=== PATIENT | male | born 1985 | race Caucasian/White ===

== ENCOUNTER → 2017-02-15 | Outpatient (CLI) | payer OTHER ==
--- NOTE | 2017-02-15 16:20 | RADIOLOGY REPORT (SQ) ---
EXAM DESCRIPTION: NOT FOR OR FLUORO TO 1 HR COMPLETED DATE/TIME: 02/15/2017 4:04 pm REASON FOR STUDY: ENCOUNTER FOR ADJUSTMENT AND MANAGEMENT Z45.2 ENCOUNTER FOR ADJUSTMENT AND MANAGE MENT OF VAD COMPARISON: 12/29/2015 FLUOROSCOPY TIME: 20 seconds 4 series of digital angiographic images images saved to PACS. LIMITATIONS: None. PROCEDURE: Patient's right-sided permanent central line was accessed under sterile conditions. Hand injection of 10 mL of Isovue was performed. Injection into the catheter required a moderate to large amount of pressure. There is a kink in the catheter tubing in the right supraclavicular region. The distal tip of the ca theter tubing has flipped from the superior vena cava into the left brachiocephalic vein. No evidence of fibrin sheath. Contrast flows from the catheter tip into the brachiocephalic vein and superior vena cava without obstruction. IMPRESSION: Catheter integrity is intact. However, there is a tight kinking of the catheter in the right supraclavicular region. The catheter tip has flipped from the superior vena cava into the left brachiocephalic vein. COMMENT: Quality ID 145: Final reports for procedures using fluoroscopy that document radiation exp osure indices, or exposure time and number of fluorographic images (if radiation exposure indices are not available) TECHNICAL DOCUMENTATION: JOB ID: [id number] [employer]- All Rights Reserved
== END ==
LOC: RAD 15:12
PROVIDERS: ATTEND Internal Medicine
DX: Z45.2 Encounter for adjustment and management of vascular access device (principal)
CPT/HCPCS: 76000

== ENCOUNTER → 2017-02-17 | Outpatient (CLI) | payer OTHER ==
--- NOTE | 2017-02-18 11:12 | RADIOLOGY REPORT (SQ) ---
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 RADIONUCLIDE AND DOSE: 13.7 mCi F18 FDG The route of agent administration: Intravenous FASTING BLOOD SUGAR: 95 mg/dl CONTRAST TYPE AND DOSE: No CT contrast given. TECHNIQUE: Blood glucose level was verified. Above dose of FDG was injected intravenously. 2-D seg mented attenuation correction images were obtained from the base of the skull to the midthighs. Nonc ontrast CT images were obtained for attenuation correction and fusion with emission images. CT image s were performed without oral or intravenous contrast and are not sensitive for parenchymal lesions. A series of overlapping emission PET images were obtained. Images reviewed and manipulated at [facility] [employer] work station by the radiologist. Images stored on PACS. LIMITATIONS: None. FINDINGS: HEAD AND NECK: No areas of abnormal metabolic activity in the soft tissues of the head and neck. CHEST: No areas of abnormal metabolic activity in the chest. ABDOMEN AND PELVIS: No areas of abnormal metabolic activity in the abdomen or pelvis. Expected physi ologic activity is present in the genitourinary system and bowel. There is incidental finding of mil d gastric fundal mucosal activity just above baseline with SUV 2.7. This is nonspecific. PROXIMAL LOWER EXTREMITIES: No areas of abnormal metabolic activity in the soft tissues of the lower extremities. BONES: No abnormal metabolic activity in the visualized skeleton. ADDITIONAL CT FINDINGS: Right-sided permanent central line tip superior vena cava. OTHER: Liver activity 2.2 SUV, blood pool activity 1.2 SUV. IMPRESSION: No hypermetabolic adenopathy worrisome for recurrent lymphoma. TECHNICAL DOCUMENTATION: JOB ID: [id number]- All Rights Reserved
== END ==
LOC: RAD 19:25
PROVIDERS: ATTEND Internal Medicine
DX: C85.90 Non-Hodgkin lymphoma, unspecified, unspecified site (principal)
CPT/HCPCS: 78815; A9552

== ENCOUNTER → 2018-11-04 | Outpatient (CLI) | payer OTHER ==
--- NOTE | 2018-11-04 10:48 | RADIOLOGY REPORT (SQ) ---
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 The patient is less than 50 years old. TECHNIQUE: CT scan of the chest performed using helical scanning technique with dynamic intravenous contrast injection. Images reviewed with lung, soft tissue and bone windows. Reconstructed coronal a nd sagittal MPR images reviewed. All images stored on PACS. CT scan of the abdomen and pelvis performed with intravenous and with oral contrastusing helical scan pako technique with dynamic intravenous contrast injection. Images reviewed with lung, soft tissue a nd bone windows. Reconstructed coronal and sagittal MPR images reviewed. Delayed images for evaluat ion of the urinary system also acquired and evaluated. All images stored on PACS. All CT scanners at this facility use dose modulation, iterative reconstruction, and/or weight based d osing when appropriate to reduce radiation dose to as low as reasonably achievable (ALARA). [facility]: Dose Right [facility]: CareDose [facility]: Dose Right [facility]: Teradose 4D [facility]: [employer] CT scan of the chest performed using helical scanning technique with dynamic intravenous contrast inj ection. Images reviewed with lung, soft tissue and bone windows. Reconstructed coronal and sagittal MPR and MIP images reviewed. All images stored on PACS. RADIATION DOSE: 63 mGy . LIMITATIONS: None. FINDINGS: CHEST: LUNGS AND PLEURA: No opacities, nodules, masses. No pneumothorax. No effusions. HILAR AND MEDIASTINAL STRUCTURES: No identified masses or abnormal nodes. HEART AND VASCULAR STRUCTURES: No aneurysm or dissection. No central pulmonary emboli. No pericardi al effusion. HARDWARE: None. THYROID AND OTHER SOFT TISSUES: No masses. No adenopathy. BONES: No significant finding. OTHER: No other significant finding. ABDOMEN AND PELVIS: LIVER: Normal size. No masses. No dilated ducts. SPLEEN: Normal size. No focal lesions. PANCREAS: No masses. No significant calcifications. No adjacent inflammation or peripancreatic fluid collections. Pancreatic duct not dilated. GALLBLADDER: No identified stones by CT criteria. No inflammatory changes to suggest cholecystitis. ADRENAL GLANDS: No significant masses or asymmetry. RIGHT KIDNEY AND URETER: No solid masses. No significant calcification. No hydronephrosis or hydroure ter. LEFT KIDNEY AND URETER: No solid masses. No significant calcification. No hydronephrosis or hydrouret er. AORTA AND VESSELS: No aneurysm. No dissection. Renal arteries, SMA, celiac without stenosis. RETROPERITONEUM: No retroperitoneal adenopathy, hemorrhage or masses. BOWEL AND PERITONEAL CAVITY: No masses or inflammatory changes. No free fluid or peritoneal masses. Patient drank oral contrast. No bowel obstruction. APPENDIX: Normal. ABDOMINAL WALL: No masses. No hernias. PELVIS: No mass or free fluid. Normal bladder. BONES: No significant or acute findings. OTHER: No other significant finding. IMPRESSION: NORMAL CT OF THE CHEST WITH IV CONTRAST. NORMAL CT OF THE ABDOMEN AND PELVIS WITH ORAL AND INTRAVENOUS CONTRAST. TECHNICAL DOCUMENTATION: JOB ID: [id number] Quality ID # [id number]: Final reports with documentation of one or more dose reduction techniques (e.g., Au tomated exposure control, adjustment of the mA and/or kV according to patient size, use of iterative reconstruction technique) 2010 [employer]- All Rights Reserved Reading location - IP/workstation name: [email or web address]
--- NOTE | 2018-11-04 11:14 | RADIOLOGY REPORT (SQ) ---
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 Reconstructed coronal and sagittal MPR images reviewed. All images stored on PACS. All CT scanners at this facility use dose modulation, iterative reconstruction, and/or weight based d osing when appropriate to reduce radiation dose to as low as reasonably achievable (ALARA). [facility]: Dose Right [facility]: CareDose [facility]: Dose Right [facility]: Teradose 4D [facility]: [employer] CONTRAST TYPE AND DOSE: 100 mL of IV Omnipaque 350- low osmolar. RENAL FUNCTION: None required. The patient is less than 50 years old. RADIATION DOSE: 18 mGy . LIMITATIONS: None. FINDINGS: SKULL BASE: Intact. MAJOR SALIVARY GLANDS: No solid or cystic masses. No inflammatory changes. LYMPHADENOPATHY: No adenopathy. MUCOSAL MASSES OR ASYMMETRY: No mucosal masses or asymmetry. LARYNX/CORDS: No abnormal findings. VASCULAR STRUCTURES: The major vessels are patent. LUNG APICES: Clear. BONES: Intact. THYROID: Normal size. No masses. PARANASAL SINUSES: Clear. OTHER: No other significant finding. IMPRESSION: NO SIGNIFICANT FINDING IN THE SOFT TISSUES OF THE NECK. TECHNICAL DOCUMENTATION: JOB ID: [id number] Quality ID # [id number]: Final reports with documentation of one or more dose reduction techniques (e.g., Au tomated exposure control, adjustment of the mA and/or kV according to patient size, use of iterative reconstruction technique) 2010 [employer]- All Rights Reserved Reading location - IP/workstation name: [employer] [email or web address]
== END ==
LOC: RAD 08:59
PROVIDERS: ATTEND Internal Medicine
DX: C82.03 Follicular lymphoma grade I, intra-abdominal lymph nodes (principal)
CPT/HCPCS: 70491; 71260; 74177

== ENCOUNTER 2019-01-15 13:52 | Emergency (ER) | payer OTHER ==
[2019-01-15 14:03] VITALS: BP 135/89
--- NOTE | 2019-01-15 14:55 | RADIOLOGY REPORT (SQ) ---
EXAM DESCRIPTION: TOE RIGHT COMPLETED DATE/TIME: 01/15/2019 2:42 pm REASON FOR STUDY: 5th toe pain COMPARISON: None. NUMBER OF VIEWS: Three views. TECHNIQUE: AP, lateral, and oblique images acquired of the right fifth toe. LIMITATIONS: None. FINDINGS: MINERALIZATION: Normal. BONES: No acute fracture or dislocation. No worrisome bone lesions. No significant osteophytes. JOINTS: No erosions. No kiana-articular osteopenia. No chondrocalcinosis. SOFT TISSUES: No swelling. No calcifications. OTHER: No other significant finding. IMPRESSION: NEGATIVE STUDY OF THE RIGHT TOE. NO EXPLANATION FOR PAIN. COMMENT: SITE OF TRAUMA/COMPLAINT MARKED/STAMP COMPLETED: YES. TECHNICAL DOCUMENTATION: JOB ID: [id number] [employer]- All Rights Reserved Reading location - IP/workstation name: [email or web address]
--- NOTE | 2019-01-15 15:03 | ER Document Report ---
HPI - HPI Time Seen by Provider: 01/15/19 14:00 Pain Level: 3 Notes: Patient is an otherwise healthy 33-year-old male presenting with pain to his right fifth toe. Patient denies any specific injury but thinks it is broken. Patient reports pain. He also reports that there is an callus in between his fourth and fifth toes that he thinks is infected. Patient reports he has been doing warm salt soaks. And taking ibuprofen. Patient reports that he would like his toenail removed. - CONSTITUTIONAL Constitutional: DENIES: Fever, Chills - REPRODUCTIVE Reproductive: DENIES: : - MUSCULOSKELETAL Musculoskeletal: REPORTS: Extremity pain - pinky toe-right Past Medical History - General Information source: Patient - Social History Smoking Status: Current Every Day Smoker Frequency of alcohol use: Occasional Drug Abuse: Marijuana Family History: Arthritis, DM, Hyperlipidemia, Hypertension Patient has suicidal ideation: No Patient has homicidal ideation: No - Past Medical History Cardiac Medical History: Denies: Hx Coronary Artery Disease, Hx Heart Attack, Hx Hypertension Pulmonary Medical History: Denies: Hx Asthma, Hx Bronchitis, Hx COPD, Hx Pneumonia Neurological Medical History: Reports: Hx Migraine. Denies: Hx Cerebrovascular Accident, Hx Seizures Renal/ Medical History: Denies: Hx Peritoneal Dialysis Musculoskeletal Medical History: Denies Hx Arthritis, Reports Hx Musculoskeletal Deformity, Reports Hx Musculoskeletal Trauma Psychiatric Medical History: Reports: Hx Post Traumatic Stress Disorder Traumatic Medical History: Reports: Hx Traumatic Brain Injury Past Surgical History: Reports: Hx Orthopedic Surgery - left hand surgery. Denies: Hx Pacemaker - Immunizations Immunizations up to date: Yes Hx Diphtheria, Pertussis, Tetanus Vaccination: Yes - 2011 [facility] Provider Document - CONSTITUTIONAL Notes: PHYSICAL EXAMINATION: GENERAL: Well-appearing, well-nourished and in no acute distress. HEAD: Atraumatic, normocephalic. EYES: Pupils equal round extraocular movements intact, conjunctiva are normal. ENT: Nares patent NECK: Normal range of motion LUNGS: No respiratory distress Musculoskeletal: Normal range of motion NEUROLOGICAL: Normal speech, normal gait. PSYCH: Normal mood, normal affect. SKIN: Erythema noted to right fifth toe, callus noted between fourth and fifth toe appears to be mildly infected with small amount of exudate. - INFECTION CONTROL TRAVEL OUTSIDE OF THE [place] IN LAST 30 DAYS: No Course - Re-evaluation Re-evalutation: X-rays negative for any acute fracture. This does not appear to be an ingrown toenail. It appears to be mild cellulitis in between the toes due to an infected area that has been rubbed together constantly. Will start patient on antibiotics. Will start patient doing Epsom salt soaks although he said he has done them I would like him to do in 3-4 times daily. Will take ibuprofen for pain. Patient verbalizes understanding and agreement with this plan other than the fact the patient is unhappy that I will not remove his toenail. 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 Patient declined to have information on a farm boss. States he has to go through the [place]. The patient's emergency department workup and current diagnosis were explained to the patient and or family. Follow-up instructions were provided. Medications if prescribed were discussed. Instructions for when to return to the emergency department including specific worrisome symptoms were discussed with the patient and/or family. - Vital Signs Vital signs: Temp Pulse Resp BP Pulse Ox 97.9 F 87 16 135/89 H 97 01/15/19 14:00 01/15/19 14:00 01/15/19 14:00 01/15/19 14:00 01/15/19 14:00 Discharge - Discharge Clinical Impression: Blister of fifth toe, right Qualifiers: Encounter type: initial encounter Qualified Code(s): S90.424A - Blister (nonthermal), right lesser toe(s), initial encounter Condition: Stable Disposition: HOME, SELF-CARE Additional Instructions: The x-ray of your toe was negative. There is no fracture. I do feel that the callus on your toe is starting to become infected. Take the antibiotic as prescribed. Soak the area 2-3 times daily in Epsom salts. Keep clean and dry. Return to the emergency department with increased pain, increased swelling, increased redness or drainage from the area or if you develop a fever. Prescriptions: Clindamycin HCl 300 mg PO TID #21 capsule Referrals: LUCAS SHAVER MD [ACTIVE STAFF] - Follow up as needed
== END 2019-01-15 15:16 | disposition home or self-care (01) ==
LOC: ER 13:52
DX: S90.424A Blister (nonthermal), right lesser toe(s), initial encounter (principal); M79.674 Pain in right toe(s); X58.XXXA Exposure to other specified factors, initial encounter; F17.200 Nicotine dependence, unspecified, uncomplicated
CPT/HCPCS: 99283

== ENCOUNTER 2020-02-11 11:42 | Emergency (ER) | payer OTHER ==
[2020-02-11 11:49] VITALS: BP 139/88
--- NOTE | 2020-02-11 12:27 | ER Document Report ---
ED Medical Screen (RME) - General Chief Complaint: Skin Problem Stated Complaint: SKIN SORE ON LEGS Time Seen by Provider: 02/11/20 12:17 [facility] Care Provider: [facility] [[facility]] - Follow up as needed Mode of Arrival: Ambulatory Information source: Patient Notes: 34-year-old male presented to ED for rash that is infected to his arms and legs and on his upper chest neck area. He does have a history of lymphoma and has been in remission since 2017. He states he did recently get a cat that has been pleased with some of these bumps for before he got the cat and noticed the fleas. I have consulted Dr. Roque stated the patient should get blood work Esequiel should be consulted and then determine the treatment after that. I have greeted and performed a rapid initial assessment of this patient. A comprehensive ED assessment and evaluation of the patient, analysis of test results and completion of medical decision making process will be conducted by an additional ED providers. TRAVEL OUTSIDE OF THE [place] IN LAST 30 DAYS: No - Related Data Allergies/Adverse Reactions: tramadol [Tramadol] Allergy (Severe, Verified 01/15/19 13:53) Seizures amitriptyline Adverse Reaction (Severe, Verified 01/15/19 13:53) Confusion Home Medications: vitamins Past Medical History - Social History Frequency of alcohol use: Occasional Drug Abuse: None - Past Medical History Cardiac Medical History: Denies: Hx Coronary Artery Disease, Hx Heart Attack, Hx Hypertension Pulmonary Medical History: Denies: Hx Asthma, Hx Bronchitis, Hx COPD, Hx Pneumonia Neurological Medical History: Reports: Hx Migraine. Denies: Hx Cerebrovascular Accident, Hx Seizures Renal/ Medical History: Denies: Hx Peritoneal Dialysis Musculoskeltal Medical History: Denies Hx Arthritis, Reports Hx Musculoskeletal Deformity, Reports Hx Musculoskeletal Trauma Psychiatric Medical History: Reports: Hx Post Traumatic Stress Disorder Traumatic Medical History: Reports: Hx Traumatic Brain Injury Past Surgical History: Reports: Hx Orthopedic Surgery - left hand surgery. Denies: Hx Pacemaker - Immunizations Immunizations up to date: Yes Hx Diphtheria, Pertussis, Tetanus Vaccination: Yes - 2011 Physical Exam - Vital signs Vitals: Temp Pulse Resp BP Pulse Ox 97.8 F 81 18 139/88 H 99 02/11/20 11:47 02/11/20 11:47 02/11/20 11:47 02/11/20 11:47 02/11/20 11:47 Course - Vital Signs Vital signs: Temp Pulse Resp BP Pulse Ox 97.8 F 81 18 139/88 H 99 02/11/20 11:47 02/11/20 11:47 02/11/20 11:47 02/11/20 11:47 02/11/20 11:47 Doctor's Discharge - Discharge Referrals: [facility] [Primary Care Provider] - Follow up as needed
[2020-02-11 12:53] LABS: ABSOLUTE BASOPHILS # (AUTO) 0.1 10^3/uL (0.0-0.2); ABSOLUTE EOSINOPHILS # (AUTO) 0.2 10^3/uL (0.0-0.6); ABSOLUTE LYMPHOCYTES (AUTO) 2.7 10^3/uL (0.5-4.7); ABSOLUTE MONOCYTES (AUTO) 0.7 10^3/uL (0.1-1.4); ABSOLUTE NEUT (AUTO) 5.4 10^3/uL (1.7-8.2); BASOPHILS % (AUTO) 0.7 % (0-2); EOSINOPHILS % (AUTO) 2.2 % (0-6); HEMATOCRIT 45.5 % (37.9-51.0); HEMOGLOBIN 15.1 g/dL (13.5-17.0); LYMPHOCYTES % (AUTO) 29.4 % (13-45); MEAN CORPUSCULAR HEMOGLOBIN 30.2 pg (27.0-33.4); MEAN CORPUSCULAR HGB CONC 33.2 g/dL (32.0-36.0); MEAN CORPUSCULAR VOLUME 91 fl (80-97); PLATELET COUNT 348 10^3/uL (150-450); RED BLOOD COUNT 5.01 10^6/uL (4.35-5.55); RED CELL DISTRIBUTION WIDTH 14.7 % (11.5-14.0); SEGMENTED NEUTROPHILS % (AUTO) 59.7 % (42-78); TOTAL CELLS COUNTED % (AUTO) 100 %; WHITE BLOOD COUNT 9.1 10^3/uL (4.0-10.5)
[2020-02-11 13:09] LABS: APPEARANCE,URINE CLEAR; BILIRUBIN,URINE NEGATIVE (NEGATIVE); COLOR,URINE COLORLESS; GLUCOSE, URINE NEGATIVE (NEGATIVE); KETONES,URINE NEGATIVE (NEGATIVE); LEUKOCYTE ESTERASE,URINE NEGATIVE (NEGATIVE); NITRITE,URINE NEGATIVE (NEGATIVE); PROTEIN,URINE NEGATIVE (NEGATIVE); URINE SPECIFIC GRAVITY 1.001; UROBILINOGEN,URINE NEGATIVE mg/dL (<2.0)
[2020-02-11 13:11] LABS: ALBUMIN 4.4 g/dL (3.5-5.0); ALKALINE PHOSPHATASE 79 U/L (38-126); ANION GAP 7 (5-19); ASPARTATE AMINO TRANSFERASE 21 U/L (17-59); BILIRUBIN,TOTAL 0.5 mg/dL (0.2-1.3); BLOOD UREA NITROGEN 11 mg/dL (7-20); CALCIUM 9.1 mg/dL (8.4-10.2); CARBON DIOXIDE 27 mmol/L (22-30); CHLORIDE 103 mmol/L (98-107); GLUCOSE 121 mg/dL (75-110); POTASSIUM 4.4 mmol/L (3.6-5.0); TOTAL PROTEIN 6.8 g/dL (6.3-8.2)
== END 2020-02-11 14:48 | disposition left against medical advice (07) ==
LOC: ER 11:42
DX: Z53.20 Procedure and treatment not carried out because of patient's decision for unspecified reasons (principal); L98.9 Disorder of the skin and subcutaneous tissue, unspecified; Z85.72 Personal history of non-Hodgkin lymphomas
CPT/HCPCS: 36415; 80053; 81001; 85025; 87040; 99283

== ENCOUNTER 2020-02-27 17:15 | Emergency (ER) | payer OTHER ==
[2020-02-27 17:34] VITALS: BP 130/82
[2020-02-27] MEDS ORDERED: CEPHALEXIN 500 MG CAPSULE PO ONE (18:30)
--- NOTE | 2020-02-27 18:35 | ER Document Report ---
HPI - HPI Time Seen by Provider: 02/27/20 18:27 Notes: CHIEF COMPLAINT: Skin rash HPI: 34-year-old male presenting for skin rash over the last month. States he was here 2 to 3 weeks ago for same complaint, did not seem to be evaluated and did not follow-up. States he had fleas in the house and had gotten several bites on the upper and lower extremities, he continues to pick at them and now has rash to the bilateral arms legs and neck. Did have amoxicillin at home which he started taking without resolution. No fevers. Patient does have history of follicular lymphoma ROS: See HPI - all other systems were reviewed and are otherwise negative Constitutional: no fever Eyes: no drainage, no blurred vision ENT: no runny nose, no sore throat Cardiovascular: no chest pain Resp: no SOB, no cough GI: no vomiting, no diarrhea, no abdominal pain : no dysuria Integumentary: + rash Allergy: no hives Musculoskeletal: no extremity pain or swelling Neurological: no numbness/tingling, no weakness MEDICATIONS: I agree with the patient medications as charted by the RN. ALLERGIES: I agree with the allergies as charted by the RN. PAST MEDICAL HISTORY/PAST SURGICAL HISTORY: Reviewed and agree as charted by RN. SOCIAL HISTORY: Reviewed and agree as charted by RN. FAMILY HISTORY: No significant familial comorbid conditions directly related to patient complaint EXAM: Reviewed vital signs as charted by RN. CONSTITUTIONAL: Alert and oriented and responds appropriately to questions. Well-appearing; well-nourished HEAD: Normocephalic; atraumatic EYES: Conjunctivae clear, sclerae non-icteric ENT: normal nose; no rhinorrhea; moist mucous membranes NECK: Supple without meningismus; non-tender; no cervical lymphadenopathy, no masses CARD: Capillary refill less than 3 seconds; symmetric distal pulses RESP: Normal chest excursion without splinting or tachypnea ABD/GI: non-distended. BACK: The back appears normal EXT: Normal ROM in all joints; non-tender to palpation; no cyanosis, no effusions, no edema SKIN: Normal color for age and race; warm; dry; good turgor; multiple raised erythematous slightly excoriated lesions on the arms legs and anterior neck. Some weeping from some of the lesions. No significant erythematous extension from the different lesions. Some scabbed appearance is noted NEURO: Moves all extremities equally; Motor and sensory function intact PSYCH: The patient's mood and manner are appropriate. Grooming and personal hygiene are appropriate. MDM: 34-year-old male likely impetigo-like scabs on the legs arms and anterior neck will trial Keflex he is to follow-up with his PCP which is the [facility] or with oncology whom he is also seen because of his lymphoma history - REPRODUCTIVE Reproductive: DENIES: : Past Medical History - Social History Smoking Status: Unknown if Ever Smoked Family History: Arthritis, DM, Hyperlipidemia, Hypertension - Past Medical History Cardiac Medical History: Denies: Hx Coronary Artery Disease, Hx Heart Attack, Hx Hypertension Pulmonary Medical History: Denies: Hx Asthma, Hx Bronchitis, Hx COPD, Hx Pneumonia Neurological Medical History: Reports: Hx Migraine. Denies: Hx Cerebrovascular Accident, Hx Seizures Renal/ Medical History: Denies: Hx Peritoneal Dialysis Musculoskeletal Medical History: Denies Hx Arthritis, Reports Hx Musculoskeletal Deformity, Reports Hx Musculoskeletal Trauma Psychiatric Medical History: Reports: Hx Post Traumatic Stress Disorder Traumatic Medical History: Reports: Hx Traumatic Brain Injury Past Surgical History: Reports: Hx Orthopedic Surgery - left hand surgery. Denies: Hx Pacemaker - Immunizations Immunizations up to date: Yes Hx Diphtheria, Pertussis, Tetanus Vaccination: Yes - 2011 [facility] Provider Document - INFECTION CONTROL TRAVEL OUTSIDE OF THE [place] IN LAST 30 DAYS: No Course - Vital Signs Vital signs: Temp Pulse Resp BP Pulse Ox 97.6 F 89 18 130/82 H 96 02/27/20 17:33 02/27/20 17:33 02/27/20 17:33 02/27/20 17:33 02/27/20 17:33 Discharge - Discharge Clinical Impression: Impetigo Condition: Stable Disposition: HOME, SELF-CARE Additional Instructions: Take the medication as prescribed. Follow-up with your digester hand given your prior history of follicular lymphoma for further evaluation and possible biopsy if lesions do not improve Prescriptions: Cephalexin Monohydrate [Keflex 500 mg Capsule] 500 mg PO Q6H 7 Days #28 capsule Referrals: [facility] [Primary Care Provider] - Follow up as needed LUCAS SHAVER MD [ACTIVE STAFF] - Follow up as needed
== END 2020-02-27 18:38 | disposition home or self-care (01) ==
LOC: ER 17:15
DX: L01.00 Impetigo, unspecified (principal)
CPT/HCPCS: 99283

== ENCOUNTER 2020-03-10 13:39 | Emergency (ER) | payer OTHER ==
--- NOTE | 2020-03-10 14:01 | ER Document Report ---
ED Medical Screen (RME) - General Chief Complaint: Neck Swelling Stated Complaint: SWOLLEN NYMTH NODE Time Seen by Provider: 03/10/20 13:50 Primary Care Provider: ROSELYN,BERNARDO [Primary Care Provider] - Follow up as needed TRAVEL OUTSIDE OF THE U.S. IN LAST 30 DAYS: No - HPI Notes: 03/10/20 14:00 34-year-old male to the emergency department with complaints of right-sided neck swelling and redness and pain that began this morning and has gotten worse. He initially called his oncologist, Dr. Knutson. Dr. Knutson advised him to come to the emergency department. Patient has a history of follicular lymphoma that is been in remission for the past year. Dr. Knutson requests CT neck, chest abdomen pelvis to evaluate for possible recurrence of lymphoma. To the right side of the neck he has edema erythema and warmth. It is tender to palpation. He states that about a week ago he was treated with oral antibiotics for impetigo. He states he finished it about 2 days ago. He did apply some topical antibiotic ointment to his neck. I performed a brief medical screening exam on the patient determined that the patient needs further evaluation and management by main side provider. I have placed initial orders to help expedite care. - Related Data Allergies/Adverse Reactions: tramadol [Tramadol] Allergy (Severe, Verified 01/15/19 13:53) Seizures amitriptyline Adverse Reaction (Severe, Verified 01/15/19 13:53) Confusion Past Medical History - Past Medical History Cardiac Medical History: Denies: Hx Coronary Artery Disease, Hx Heart Attack, Hx Hypertension Pulmonary Medical History: Denies: Hx Asthma, Hx Bronchitis, Hx COPD, Hx Pneumonia Neurological Medical History: Reports: Hx Migraine. Denies: Hx Cerebrovascular Accident, Hx Seizures Renal/ Medical History: Denies: Hx Peritoneal Dialysis Musculoskeltal Medical History: Denies Hx Arthritis, Reports Hx Musculoskeletal Deformity, Reports Hx Musculoskeletal Trauma Psychiatric Medical History: Reports: Hx Post Traumatic Stress Disorder Traumatic Medical History: Reports: Hx Traumatic Brain Injury Past Surgical History: Reports: Hx Orthopedic Surgery - left hand surgery. Denies: Hx Pacemaker - Immunizations Immunizations up to date: Yes Hx Diphtheria, Pertussis, Tetanus Vaccination: Yes - 2011 Physical Exam - Vital signs Vitals: Temp Pulse Resp BP 97.9 F 94 16 136/98 H 03/10/20 13:44 03/10/20 13:44 03/10/20 13:44 03/10/20 13:44 Course - Vital Signs Vital signs: Temp Pulse Resp BP Pulse Ox 97.9 F 94 16 136/98 H 03/10/20 13:44 03/10/20 13:44 03/10/20 13:44 03/10/20 13:44 Doctor's Discharge - Discharge [facility]errals: [facility] [[facility]] - Follow up as needed
[2020-03-10 14:46] LABS: ABSOLUTE EOSINOPHILS # (AUTO) 0.1 10^3/uL (0.0-0.6); ABSOLUTE LYMPHOCYTES (AUTO) 1.7 10^3/uL (0.5-4.7); ABSOLUTE MONOCYTES (AUTO) 0.6 10^3/uL (0.1-1.4); BASOPHILS % (AUTO) 0.4 % (0-2); EOSINOPHILS % (AUTO) 1.3 % (0-6); HEMATOCRIT 39.6 % (37.9-51.0); LYMPHOCYTES % (AUTO) 20.4 % (13-45); MEAN CORPUSCULAR HEMOGLOBIN 31.1 pg (27.0-33.4); MEAN CORPUSCULAR HGB CONC 35.3 g/dL (32.0-36.0); MEAN CORPUSCULAR VOLUME 88 fl (80-97); MONOCYTES % (AUTO) 6.9 % (3-13); PLATELET COUNT 281 10^3/uL (150-450); RED BLOOD COUNT 4.49 10^6/uL (4.35-5.55); RED CELL DISTRIBUTION WIDTH 13.4 % (11.5-14.0); TOTAL CELLS COUNTED % (AUTO) 100 %; WHITE BLOOD COUNT 8.5 10^3/uL (4.0-10.5)
[2020-03-10 14:59] LABS: ALBUMIN 3.9 g/dL (3.5-5.0); ALKALINE PHOSPHATASE 70 U/L (38-126); ANION GAP 6 (5-19); ASPARTATE AMINO TRANSFERASE 21 U/L (17-59); BILIRUBIN,DIRECT 0.2 mg/dL (0.0-0.4); BILIRUBIN,TOTAL 0.4 mg/dL (0.2-1.3); BLOOD UREA NITROGEN 9 mg/dL (7-20); CALCIUM 8.8 mg/dL (8.4-10.2); CARBON DIOXIDE 29 mmol/L (22-30); CHLORIDE 103 mmol/L (98-107); GLUCOSE 106 mg/dL (75-110); POTASSIUM 4.1 mmol/L (3.6-5.0)
--- NOTE | 2020-03-10 15:17 | RADIOLOGY REPORT (SQ) ---
EXAM DESCRIPTION: CT CHEST WITH; CT ABD/PELVIS WITH IV ONLY IMAGES COMPLETED DATE/TIME: 03/10/2020 2:54 pm REASON FOR STUDY: neck sweling, hx of lymphoma COMPARISON: 11/04/2018 CONTRAST TYPE AND DOSE: contrast/concentration: Isovue 350.00 mmol/ml; Total Contrast Delivered: 100 .0 ml; Total Saline Delivered: 71.9 ml RENAL FUNCTION: BUN 11; creatinine 0.78 TECHNIQUE: CT scan of the chest performed using helical scanning technique with dynamic intravenous contrast injection. Images reviewed with lung, soft tissue and bone windows. Reconstructed coronal a nd sagittal MPR images reviewed. All images stored on PACS. CT scan of the abdomen and pelvis performed with intravenous and without oral contrastusing helical s sawyer technique with dynamic intravenous contrast injection. Images reviewed with lung, soft tissu e and bone windows. Reconstructed coronal and sagittal MPR images reviewed. Delayed images for eval uation of the urinary system also acquired and evaluated. All images stored on PACS. All CT scanners at this facility use dose modulation, iterative reconstruction, and/or weight based d osing when appropriate to reduce radiation dose to as low as reasonably achievable (ALARA). [facility]: Dose Right [facility]: CareDose [facility]: Dose Right [facility]: Teradose 4D [facility]: [employer] RADIATION DOSE: . LIMITATIONS: None. FINDINGS: CHEST: LUNGS AND PLEURA: No opacities, nodules, masses. No pneumothorax. No effusions. HILAR AND MEDIASTINAL STRUCTURES: No identified masses or abnormal nodes. HEART AND VASCULAR STRUCTURES: No aneurysm or dissection. No central pulmonary emboli. No pericardi al effusion. HARDWARE: None. THYROID AND OTHER SOFT TISSUES: No masses. No adenopathy. BONES: No significant finding. OTHER: No other significant finding. ABDOMEN AND PELVIS: LIVER: Normal size. No masses. No dilated ducts. SPLEEN: The spleen measures at the upper limits of normal without focal mass lesion. PANCREAS: No masses. No significant calcifications. No adjacent inflammation or peripancreatic fluid collections. Pancreatic duct not dilated. GALLBLADDER: No identified stones by CT criteria. No inflammatory changes to suggest cholecystitis. ADRENAL GLANDS: No significant masses or asymmetry. RIGHT KIDNEY AND URETER: No solid masses. No significant calcification. No hydronephrosis or hydroure ter. LEFT KIDNEY AND URETER: No solid masses. No significant calcification. No hydronephrosis or hydrouret er. AORTA AND VESSELS: No aneurysm. No dissection. Renal arteries, SMA, celiac without stenosis. RETROPERITONEUM: No retroperitoneal adenopathy, hemorrhage or masses. BOWEL AND PERITONEAL CAVITY: No masses or inflammatory changes. No free fluid or peritoneal masses. APPENDIX: Normal. ABDOMINAL WALL: Small fat containing umbilical hernia. PELVIS: No mass or free fluid. Uniform thickening of the bladder wall likely due to nondistention. Incidental note is made of a tiny urachal diverticulum. . BONES: No significant or acute findings. OTHER: No other significant finding. IMPRESSION: Stable CT appearance of the chest, abdomen, and pelvis. No evidence of primary or metas tatic disease. Chronic and incidental findings as detailed above. TECHNICAL DOCUMENTATION: JOB ID: [id number] Quality ID # [id number]: Final reports with documentation of one or more dose reduction techniques (e.g., Au tomated exposure control, adjustment of the mA and/or kV according to patient size, use of iterative reconstruction technique) 2010 [employer]- All Rights Reserved Reading location - IP/workstation name: [email or web address]
--- NOTE | 2020-03-10 15:24 | RADIOLOGY REPORT (SQ) ---
EXAM DESCRIPTION: CT SOFT TISSUE NECK WITH IMAGES COMPLETED DATE/TIME: 03/10/2020 2:54 pm REASON FOR STUDY: neck swelling hx of lymphoma COMPARISON: 11/04/2018 TECHNIQUE: Post IV contrasted scanning from skull base through lung apices with review of bone, soft tissue and lung windows. Reconstructed coronal and sagittal MPR images reviewed. All images stored on PACS. All CT scanners at this facility use dose modulation, iterative reconstruction, and/or weight based d osing when appropriate to reduce radiation dose to as low as reasonably achievable (ALARA). [facility]: Dose Right [facility]: CareDose [facility]: Dose Right [facility]: Teradose 4D [facility]: NEURONIX CONTRAST TYPE AND DOSE: 100 mL Omnipaque 350- low osmolar. RENAL FUNCTION: BUN 11; creatinine 0.78 RADIATION DOSE: CT Rad equipment meets quality standard of care and radiation dose reduction techniq ues were employed. CTDIvol: 16.2 - 23.7 mGy. DLP: 4143 mGy-cm. . LIMITATIONS: None. FINDINGS: SKULL BASE: Intact. MAJOR SALIVARY GLANDS: No solid or cystic masses. No inflammatory changes. LYMPHADENOPATHY: No adenopathy. MUCOSAL MASSES OR ASYMMETRY: No mucosal masses or asymmetry. LARYNX/CORDS: No abnormal findings. VASCULAR STRUCTURES: The major vessels are patent. LUNG APICES: Clear. BONES: Intact. THYROID: Normal size. No masses. PARANASAL SINUSES: Clear. OTHER: No other significant finding. IMPRESSION: NO SIGNIFICANT FINDING IN THE SOFT TISSUES OF THE NECK. TECHNICAL DOCUMENTATION: JOB ID: [id number] Quality ID # [id number]: Final reports with documentation of one or more dose reduction techniques (e.g., Au tomated exposure control, adjustment of the mA and/or kV according to patient size, use of iterative reconstruction technique) 2010 [employer]- All Rights Reserved Reading location - IP/workstation name: [email or web address]
--- NOTE | 2020-03-10 19:40 | ER Document Report ---
ED General - General Chief Complaint: Neck Swelling Stated Complaint: SWOLLEN NYMIH NODE Time Seen by Provider: 03/10/20 13:50 [facility]: [facility] [[facility]] - Follow up as needed Notes: 34-year-old male with past medical history of follicular lymphoma 1 year ago. He had swelling of his right neck and redness and warmth starting this morning. He called Dr. Jarivs who recommended he come to the emergency department and have CT chest abdomen pelvis and a CT of the neck performed to evaluate for return of the lymphoma. He was recently diagnosed with impetigo at the end of January and prescribed Keflex for the impetigo which has mostly resolved. No fevers, chills or additional symptoms reported at this time. TRAVEL OUTSIDE OF THE [place]S. IN LAST 30 DAYS: No - Related Data Allergies/Adverse Reactions: tramadol [Tramadol] Allergy (Severe, Verified 01/15/19 13:53) Seizures amitriptyline Adverse Reaction (Severe, Verified 01/15/19 13:53) Confusion Past Medical History - Social History Smoking Status: Current Every Day Smoker Chew tobacco use (# tins/day): Yes Frequency of alcohol use: Rare Drug Abuse: Marijuana Family History: Arthritis, DM, Hyperlipidemia, Hypertension - Past Medical History Cardiac Medical History: Denies: Hx Coronary Artery Disease, Hx Heart Attack, Hx Hypertension Pulmonary Medical History: Denies: Hx Asthma, Hx Bronchitis, Hx COPD, Hx Pneumonia Neurological Medical History: Reports: Hx Migraine. Denies: Hx Cerebrovascular Accident, Hx Seizures Renal/ Medical History: Denies: Hx Peritoneal Dialysis Musculoskeletal Medical History: Denies Hx Arthritis, Reports Hx Musculoskeletal Deformity, Reports Hx Musculoskeletal Trauma Psychiatric Medical History: Reports: Hx Post Traumatic Stress Disorder Traumatic Medical History: Reports: Hx Traumatic Brain Injury Past Surgical History: Reports: Hx Orthopedic Surgery - left hand surgery. Denies: Hx Pacemaker - Immunizations Immunizations up to date: Yes Hx Diphtheria, Pertussis, Tetanus Vaccination: Yes - 2011 Review of Systems - Review of Systems Constitutional: No symptoms reported EENT: See HPI Cardiovascular: No symptoms reported Respiratory: No symptoms reported Gastrointestinal: No symptoms reported Genitourinary: No symptoms reported Male Genitourinary: No symptoms reported Musculoskeletal: No symptoms reported Skin: See HPI Hematologic/Lymphatic: No symptoms reported Neurological/Psychological: No symptoms reported Physical Exam - Vital signs Vitals: Temp Pulse Resp BP 97.9 F 94 16 136/98 H 03/10/20 13:44 03/10/20 13:44 03/10/20 13:44 03/10/20 13:44 - Notes Notes: Adult General: GENERAL: Alert, interacts well. No acute distress HEAD: Normocephalic, atraumatic EYES: Pupils equal, round and reactive to light. Extraocular movements intact. ENT: Oral mucosa moist, tongue midline. Oropharynx unremarkable. Airway patent. Nares patent. No Trismus. NECK: Full range of motion. Supple. Trachea midline. No lymphadenopathy. LUNGS: Clear to auscultation bilaterally, no wheezes, rales, or rhonchi. No respiratory distress. Nontender chest wall. HEART: Regular rate and rhythm. No murmurs, rubs or gallops. ABDOMEN: Soft, nontender. Nondistended. GENITOURINARY: Deferred EXTREMITIES: Moves all 4 extremities spontaneously. BACK: Moves all extremities with full range of motion. NEUROLOGICAL: Alert and oriented x3. Normal speech. Cranial nerves II through XII grossly intact. Strength 5/ 5 in all extremities. PSYCH: Normal affect, normal mood. SKIN: small crusting lesions with surrounding erythema, warmth and tenderness on left neck. Course - Re-evaluation Re-evalutation: 03/11/20 11:[address] scans are unremarkable. No abscesses or evidence of metastatic cancer. CBC is unremarkable. Based on the redness, warmth and tenderness, I will treat patient for cellulitis. I discussed these findings with the patient. He informs this provider it was more red and swollen this morning. He will need to follow up with a primary care provider and I also recommend he has a follow up with Dr. Jarvis. Patient acknowledges and verbalizes understanding of instructions and plan. All questions answered. I called Dr. Rosas to inform her of the negative CT findings and the normal CBC. - Vital Signs Vital signs: Temp Pulse Resp BP Pulse Ox 97.6 F 93 20 140/85 H 100 03/10/20 19:47 03/10/20 19:47 03/10/20 19:47 03/10/20 19:47 03/10/20 19:47 - Laboratory Result Diagrams: 03/10/20 14:17 03/10/20 14:17 Laboratory results interpreted by me: 03/10/20 14:17 Total Protein 6.0 L Discharge - Discharge Clinical Impression: Cellulitis Qualifiers: Site of cellulitis: neck Qualified Code(s): L03.221 - Cellulitis of neck Condition: Stable Disposition: HOME, SELF-CARE Instructions: Cellulitis ([facility]), Clindamycin ([facility]) Additional Instructions: Your symptoms are consistent with a cellulitis. You are being prescribed an antibiotic. Please take medication as prescribed. I do recommend that you follow-up with your oncologist for a follow-up. Also recommend you follow-up with your primary care to ensure resolution of the cellulitis. Please return the emergency department for worsening symptoms or development of new symptoms. Prescriptions: Clindamycin HCl [Cleocin 150 mg Capsule] 150 mg PO TID 7 Days #63 capsule [facility]errals: [facility] [[facility]] - Follow up as needed
[2020-03-10 19:47] VITALS: BP 140/85
== END 2020-03-10 19:58 | disposition home or self-care (01) ==
LOC: ER 13:39
DX: L03.221 Cellulitis of neck (principal); F17.220 Nicotine dependence, chewing tobacco, uncomplicated; Z85.72 Personal history of non-Hodgkin lymphomas
CPT/HCPCS: 36415; 70491; 71260; 74177; 80053; 83605; 85025; 87040; 99285

== ENCOUNTER 2020-05-20 21:42 | Emergency (ER) | payer OTHER ==
--- NOTE | 2020-05-21 00:17 | ER Document Report ---
ED General - General Mode of Arrival: Ambulatory Information source: Patient TRAVEL OUTSIDE OF THE U.S. IN LAST 30 DAYS: No <LAKISHA PABON - Last Filed: 05/21/20 06:35> <WATSON FISH - Last Filed: 05/23/20 11:51> - General Chief Complaint: Psych Problem Stated Complaint: IVC Time Seen by Provider: 05/20/20 23:54 [facility]: [facility] [[facility]] - Follow up as needed Notes: Patient is a 35-year-old male who comes in today companied by to [place] police officers. Apparently he has had a recent break-up from girlfriend. She has claimed that he has sent pictures/text messages to her that concerned her that potentially he was at risk for hurting himself. Patient denies that he has any suicidal ideation. He does not have homicidal ideation either. States he has no history of mental illness. He attests that the his girlfriend possesses the capability to send messages to her own phone that look like they came from his phone. He denies sending any pictures of firearms to her. Patient is petitioned by Dr. Bairon Mendoza. Paperwork in chart (LAKISHA PABON) - Related Data Allergies/Adverse Reactions: tramadol [Tramadol] Allergy (Severe, Verified 05/20/20 22:36) Seizures amitriptyline Adverse Reaction (Severe, Verified 05/20/20 22:36) Confusion Past Medical History - Social History Smoking Status: Current Every Day Smoker Frequency of alcohol use: Occasional Drug Abuse: Marijuana Family History: Arthritis, DM, Hyperlipidemia, Hypertension Patient has homicidal ideation: No - Past Medical History Cardiac Medical History: Denies: Hx Coronary Artery Disease, Hx Heart Attack, Hx Hypertension Pulmonary Medical History: Denies: Hx Asthma, Hx Bronchitis, Hx COPD, Hx Pneumonia Neurological Medical History: Reports: Hx Migraine. Denies: Hx Cerebrovascular Accident, Hx Seizures Renal/ Medical History: Denies: Hx Peritoneal Dialysis Musculoskeletal Medical History: Denies Hx Arthritis, Reports Hx Musculoskeletal Deformity, Reports Hx Musculoskeletal Trauma Psychiatric Medical History: Reports: Hx Post Traumatic Stress Disorder Traumatic Medical History: Reports: Hx Traumatic Brain Injury Past Surgical History: Reports: Hx Orthopedic Surgery - left hand surgery. Denies: Hx Pacemaker - Immunizations Immunizations up to date: Yes Hx Diphtheria, Pertussis, Tetanus Vaccination: Yes - 2011 <LAKISHA PABON Beverley - Last Filed: 05/21/20 06:35> Review of Systems <LAKISHA PABON - Last Filed: 05/21/20 06:35> - Review of Systems Notes: Constitutional: No fevers. No chills. EENT: No eye redness. No eye pain. No ear pain. No sore throat. Cardiovascular: No chest pain. No palpitations. Respiratory: No cough. No shortness of breath. No respiratory distress. Gastrointestinal: No abdominal pain. No nausea, vomiting, or diarrhea. Genitourinary: Atraumatic. No lesions. No pain. No discharge. Musculoskeletal: Atraumatic. No swelling. No deformities. Skin: No rash or lesions. Lymphatic: No swollen lymph nodes. Neurologic: No headache. No syncope. Psychiatric: Denies SI/HI (LAKISHA PABON) Physical Exam <LAKISHA PABON Beverley - Last Filed: 05/21/20 06:35> - Vital signs Vitals: Temp Pulse BP Pulse Ox 97.8 F 119 H 151/99 H 97 05/20/20 22:14 05/20/20 22:14 05/20/20 22:14 05/20/20 22:14 - Notes Notes: General: Well-developed, well-nourished. In no acute distress. Non-toxic appearing. Cardiac: Well-perfused. Regular rate and rhythm. No murmurs, rubs, or gallops. Pulmonary: No respiratory distress. No cyanosis. Bilateral lung malik are clear to auscultation. Abdominal: Non-distended. Non-rigid. Bowels sounds are present in all four quadrants. No guarding or rebound. HEENT: Head is atraumatic. Conjunctivae not reddened. No tearing. PERRL. EOMI. Orbits atraumatic. No periorbital swelling or erythema. Oropharynx is without erythema, swelling, or exudates. Neck: Supple. No adenopathy. No meningismus. Dermatologic: Warm with good turgor. No rash. Atraumatic. Chest: Atraumatic. No chest wall tenderness to palpation. Musculoskeletal: Moves all extremities well. No range of motion deficits. no muscular or joint tenderness. No paraspinal muscle tenderness. no midline spinal tenderness or step-off. Genitourinary: Examination deferred Neurologic: No gross neurologic deficits. Psychiatric: Normal mood. (LAKISHA PABON) Course - Laboratory Result Diagrams: 05/21/20 00:35 05/21/20 00:35 - EKG Interpretation by Pr EKG shows normal: Sinus rhythm, Cam[place], Intervals, QRS Complexes, ST-T Waves Rate: Tachycardia - rate of 101 <LAKISHA PABON - Last Filed: 05/21/20 06:35> - Laboratory Result Diagrams: 05/21/20 00:35 05/21/20 00:35 <WATSON FISH - Last Filed: 05/23/20 11:51> - Re-evaluation Re-evalutation: 05/21/20 00:16 Notarized copy of the petition is in the chart. 05/21/20 06:19 05/21/20 06:35 Vital signs are stable. Patient is medically clear for psychiatric evaluation (LAKISHA PABON) - Vital Signs Vital signs: Temp Pulse Resp BP Pulse Ox 96.4 F L 94 16 112/70 98 05/23/20 08:09 05/23/20 08:09 05/23/20 08:09 05/23/20 08:09 05/23/20 08:09 - Laboratory Laboratory results interpreted by ky: 05/21/20 05/21/20 00:35 00:35 WBC 11.9 H Glucose 144 H Salicylates < 1.0 L Acetaminophen < 10 L Discharge <LAKISHA PABON - Last Filed: 05/21/20 06:35> <WATSON FISH - Last Filed: 05/23/20 11:51> - Discharge Clinical Impression: Suicidal ideation, Paranoia Condition: Good Disposition: PSYCH HOSP/UNIT [facility]errals: [facility] [[facility]] - Follow up as needed
[2020-05-21 01:00] LABS: ABSOLUTE BASOPHILS # (AUTO) 0.1 10^3/uL (0.0-0.2); ABSOLUTE EOSINOPHILS # (AUTO) 0.1 10^3/uL (0.0-0.6); ABSOLUTE LYMPHOCYTES (AUTO) 2.7 10^3/uL (0.5-4.7); ABSOLUTE NEUT (AUTO) 7.9 10^3/uL (1.7-8.2); BASOPHILS % (AUTO) 0.7 % (0-2); EOSINOPHILS % (AUTO) 1.1 % (0-6); HEMATOCRIT 42.2 % (37.9-51.0); HEMOGLOBIN 14.3 g/dL (13.5-17.0); MEAN CORPUSCULAR HEMOGLOBIN 30.1 pg (27.0-33.4); MEAN CORPUSCULAR HGB CONC 33.9 g/dL (32.0-36.0); MEAN CORPUSCULAR VOLUME 89 fl (80-97); MONOCYTES % (AUTO) 8.8 % (3-13); PLATELET COUNT 344 10^3/uL (150-450); RED BLOOD COUNT 4.76 10^6/uL (4.35-5.55); RED CELL DISTRIBUTION WIDTH 13.5 % (11.5-14.0); SEGMENTED NEUTROPHILS % (AUTO) 66.4 % (42-78); TOTAL CELLS COUNTED % (AUTO) 100 %; WHITE BLOOD COUNT 11.9 10^3/uL (4.0-10.5)
[2020-05-21 01:09] LABS: APPEARANCE,URINE CLEAR; BILIRUBIN,URINE NEGATIVE (NEGATIVE); COLOR,URINE COLORLESS; GLUCOSE, URINE NEGATIVE (NEGATIVE); KETONES,URINE NEGATIVE (NEGATIVE); LEUKOCYTE ESTERASE,URINE NEGATIVE (NEGATIVE); NITRITE,URINE NEGATIVE (NEGATIVE); PROTEIN,URINE NEGATIVE (NEGATIVE); UROBILINOGEN,URINE NEGATIVE mg/dL (<2.0)
[2020-05-21 01:23] LABS: ACETAMINOPHEN < 10 ug/mL (10-30); ALBUMIN 4.6 g/dL (3.5-5.0); ALCOHOL < 10 mg/dL (NONE DETECTED); ALKALINE PHOSPHATASE 92 U/L (38-126); ANION GAP 11 (5-19); ASPARTATE AMINO TRANSFERASE 21 U/L (17-59); BILIRUBIN,DIRECT 0.2 mg/dL (0.0-0.4); BILIRUBIN,TOTAL 0.9 mg/dL (0.2-1.3); BLOOD UREA NITROGEN 10 mg/dL (7-20); CALCIUM 9.5 mg/dL (8.4-10.2); CARBON DIOXIDE 26 mmol/L (22-30); CHLORIDE 101 mmol/L (98-107); GLUCOSE 144 mg/dL (75-110); POTASSIUM 3.8 mmol/L (3.6-5.0)
[2020-05-21 01:24] LABS: SALICYLATE < 1.0 mg/dL (2.0-20.0)
[2020-05-21 01:51] LABS: URINE BARBITURATES SCREEN NEGATIVE; URINE BENZODIAZEPINES SCREEN NEGATIVE; URINE COCAINE SCREEN NEGATIVE; URINE MARIJUANA (THC) SCREEN NEGATIVE; URINE METHADONE SCREEN NEGATIVE; URINE PHENCYCLIDINE SCREEN NEGATIVE
[2020-05-21] MEDS ORDERED: NORMAL SALINE 1000 ML 1,000 ML IV ONE (02:08)
--- NOTE | 2020-05-21 11:26 | ER Document Report ---
Doctor's Note Notes: 05/21/20 10:55 PHYSICAL EXAMINATION: GENERAL: Well-appearing and in no acute distress. HEAD: Atraumatic, normocephalic. EYES: sclera anicteric, conjunctiva are normal. ENT: nares patent. Moist mucous membranes. NECK: Normal range of motion, supple without lymphadenopathy LUNGS: CTAB and equal. No wheezes rales or rhonchi. HEART: Regular rate and rhythm without murmurs EXTREMITIES: Normal range of motion, no pitting edema. BACK: No CVA tenderness NEUROLOGICAL: Cranial nerves grossly intact. Normal speech. PSYCH: Normal mood, normal affect. SKIN: Warm, Dry, normal turgor, no rashes or lesions noted Patient appears medically clear for transfer discharge pending behavioral health team disposition at this time. Patient denies any SI or HI. 05/21/20 16:52 Patient attempted elopement and was running out of department. Patient was apprehended and returned to room. 05/21/20 17:43 Nurse states that patient is willing to take oral tablets but does not want injectable meds at this time. Med switched to oral 05/21/20 18:08 Patient no longer willing to take oral medications. Patient continues agitated requesting a police justice to come to bedside so that he can dispute his IVC status. Patient asked whether he would like oral or injectable medications, patient states that he is not going to take neither, patient advised that medications would be given intramuscularly at this time. 05/21/20 18:09 Report and handoff given to Kathy Cole NP
--- NOTE | 2020-05-21 13:50 | PSYCHOLOGICAL NOTE ---
Psych Note - Psych Note Date seen by psych provider: 05/21/20 Time seen by psych provider: 12:32 Psych Note: From [id number] obtained collateral from mother Nataly ([phone], cell [phone]) via telephone call. She stated she had not spoke with patient in 5-6 days or longer. She noted he had accused his girlfriend Trip of having an affair.being an escort/being a Porn Star and doing videos. She stated she tried to get patient to come to her house 6 hours away in [facility] ([place]) giving girlfriend and their 8 year old son a break and patient a chance to get himself stabilized but he declined. She stated she had been calling and texting him but he shut his phone off. She stated his sister noted he was using an application on his computer to make contact with some people. She stated he should be on medication but her likely has not been on them in a few years. She reported he has "PTSD big time and lots of paranoia." She denied concerns for drug and alcohol use. Mother denied knowledge of previous suicide attempts. She asked if police confiscated the Shotgun/rifle as he had gotten it and she does not know where from. She noted "Holidays are hard, patient has another son that lives 15 minutes from mother and they are not included in his life/his birthday is approaching, as well just before patient had deployed to [place] he found his roommate who had committed suicide which was July time frame. Mother reported family history both maternal and paternal of Depression. She stated she felt he needed inpatient or to agree for her to come get him and to go back to [place] with her for a bit.
[2020-05-21] MEDS ORDERED: BENZTROPINE MESYLATE 1 MG TABLET PO SCH ×2 (14:45→17:45)
--- NOTE | 2020-05-21 15:05 | PSYCHOLOGICAL NOTE ---
Psych Note - Psych Note Date seen by psych provider: 05/21/20 Time seen by psych provider: 11:54 Psych Note: [id number] Reason for Consult: suicidal ideation Consent Permissions: Nataly Morejon, ; [phone] Patient is a 35 year old male who presented to the [facility] today via [employer], on a 24 petition for suicidal ideations. Apparently he has had a recent break-up from girlfriend and she has claimed that he has sent pictures/text messages to her that concerned her that potentially he was at risk for hurting himself. Patient denies suicidal ideations, plan, or intent. He denies homicidal ideations, plan, or intent. He has a history of PTSD and a TBI and served 5 years in the [employer]. Patient reports he and his girlfriend recently broke up due to her alleged infidelity and he states she is trying to sabotage him and make him lose rights to his kid with her (8 year old). He reports he and she broke up and it was suspicious because she asked for a wellness check on him as she is trying to get his son taken away. When asked about the photo of the gun sent to [employer] he replies, Unless you have a badge, I will not discuss with you. He later denies sending photo. Patient reports he was admitted to [facility] on [place] in 2009 due to a bad side effect from Amitriptyline. He reports staying 3 days. Denies history of suicide attempts and other inpatient treatment admissions. [facility] is prescribed Ativan and Seroquel, however did not confirm or deny taking regularly. Patients UDS was a probable positive for amphetamines/ methamphetamines, however he denies use, and report intermittent cocaine use, last time 2-3 days ago. Collateral was obtained by behavioral health team. Please refer to the other psych note dated 05/21/2020 for collateral. [facility] was called at 1556 to talk to patient. Upon finding out he was being put under a full IVC, patient began to escalate and become more irritable. Patient was demanding to speak to anyone from [facility]. Behavioral health team called [facility] to speak to patient to see if it would give him a better understanding of the situation that took place last night. Speaking to [employer] did not help patient's mood or behaviors. Patient was transferred to a different room and proceeded to attempt to run away from [facility], after being told he was on IVC and would be brought back. Patient was brought back by hospital security and [employer] and was put into restraints. He continues to yell at staff, call staff names, and state he is being framed and is innocent. Patient has been informed of the process and will not let staff talk or explain before he interrupts, mocks, or yells. Patient was alert and oriented to self, person, place, and time. Mood was irritable, paranoid, and defensive with congruent affect. He denied current SI/HI. Patient did not appear to be responding to internal stimuli as evidenced by fair eye contact and answering questions appropriately when addressed. Thought processes are disorganized and guarded. Conversational speech was within normal limits for rate, tone and prosody. Intellectual abilities are estimated to be average. Insight, judgment and impulse control were poor evidenced by text/photo evidence of pictures sent to ex-girlfriend with suicidal ideations and by denying occurring. Patient believes his girlfriend has a way to send messages from his phone to frame him Clinical Presentation: irritable mood, suicidal ideations, paranoia IVC Criteria per [place] GS 122C Dangerous to others Within the relevant past the individual No has inflicted or attempted to inflict or threatened to inflict serious bodily harm on another AND No that there is a reasonable probability that this conduct will be repeated. OR No has acted in such a way as to create a substantial risk of serious bodily harm to another AND No that there is a reasonable probability that this conduct will be repeated. OR No has engaged in extreme destruction of property AND NO that there is a reasonable probability that this conduct will be repeated. Previous episodes of dangerousness to others, when applicable, may be considered when determining reasonable probability of future dangerous conduct. Clear, cogent, and convincing evidence that an individual has committed a homicide in the relevant past is prima facie evidence of dangerousness to others. Dangerous to self Within the relevant past the individual has done any of the following: acted in such a way as to show ALL of the following: No The individual would be unable without care, supervision, and the continued assistance of others not otherwise available, to exercise self- control, judgment, and discretion in the conduct of the individual's daily responsibilities and social relations or to satisfy the individual's need for nourishment, personal or medical care, retirement, or self-protection and safety. AND No There is a reasonable probability of the individual suffering serious physical debilitation within the near future unless adequate treatment is given. A showing of behavior that is grossly irrational, of actions that the individual is unable to control, of behavior that is grossly inappropriate to the situation, or of other evidence of severely impaired insight and judgment shall create a prima facie inference that the individual is unable to care for himself or herself. OR Yes has attempted suicide or threatened suicide Patient text his girlfriend suicidal ideations and a picture of a gun, threatening to shoot himself AND Yes that there is a reasonable probability of suicide unless adequate treatment is given Patient has access to a gun and has a history of PTSD and a TBI. Due to probable positive methamphetamine/amphetamine on UDS, he is at risk of impulsively acting on his suicide threats. OR No has mutilated himself or herself or attempted to mutilate himself or herself AND No that there is a reasonable probability of serious self-mutilation unless adequate treatment is given. NOTE: Previous episodes of dangerousness to self, when applicable, may be considered when determining reasonable probability of physical debilitation, suicide, or self-mutilation. Medication recommendations per [facility] contracted psychiatrist, Dr. Maris MUNROE, are as follows: start Zyprexa 5mg twice a day and Cogentin 1mg once a day, and Thorazine 50mg IM every six hours as needed Impression\\plan: Patient is currently under full IVC and referral is being sent to [place] inpatient psychiatric hospitals to assist patient with medication management in order to return to baseline. Patient is a danger to himself. He was admitted to the [facility] after sending suicidal text messages and photos of a gun to his ex-girlfriend. Patient has a history of PTSD that has been untreated as well as possible neurological concerns related to his TBI. He has probable substance abuse occurring due to UDS being positive for amphetamines/ methamphetamines, however patient reports only using cocaine 2-3 days prior, which both can cause an increase in paranoia and impulsivity issues. Patient has been making bizarre accusations of his girlfriend of ten years being a porn star and cheating on him and has likely been off of his psychiatric medications for some time, as evidenced by mother's report during collateral call. Upon assessment, he continued to deny events occurring and states he is not suicidal. Patient is paranoid and will not discuss photos of gun with clinician as she is not wearing a badge. He becomes guarded when asked questions about events leading up to hospitalization and is very defensive stating he is "innocent." There is significant concern for his access to the gun and concern for when he is altered (positive methamphetamine/amphetamine on UDS, reported cocaine use) he may impulsively act on thoughts to shoot himself. Dr. Mendoza was consulted to care management of this patient; attending physicians in agreement with recommendations and disposition.
[2020-05-21] MEDS ORDERED: CHLORPROMAZINE HCL INJ 25 MG/1 ML AMPULE IM PRN ×2 (16:49→18:06)
[2020-05-21] MEDS ORDERED: BENZTROPINE MESYLATE INJ 2 MG/2 ML AMPULE IM SCH (17:15)
[2020-05-21] MEDS ORDERED: CHLORPROMAZINE HCL 50 MG TABLET PO PRN (17:43)
[2020-05-21] MEDS ORDERED: OLANZAPINE INJ/PF 10 MG SDV IM SCH (18:00)
[2020-05-21] MEDS ORDERED: OLANZAPINE 5 MG TABLET PO SCH ×2 (18:00)
[2020-05-21] MEDS: OLANZAPINE INJ/PF 10 MG SDV IM SCH (18:45)
--- NOTE | 2020-05-21 19:40 | EKG REPORT ---
SEVERITY:- OTHERWISE NORMAL ECG - SINUS TACHYCARDIA : Confirmed by: Kayleen Javier MD 21-May-2020 19:39:52
--- NOTE | 2020-05-21 19:47 | ER Document Report ---
Doctor's Note Notes: 05/21/20 19:45 Patient remains in four-point restraints as previously ordered. Patient did have 1 restraint removed so that he can eat was told by nursing staff that he took the fork and tried to stab himself in the leg patient was put back in four- point restraints. He is resting in bed in four-point restraints. We will continue to monitor prior to removing restraints. 05/21/2020 20:25 Patient still appears to be slightly aggressive will remain in restraints and reevaluate. 05/21/20 23:41 Patient is sleeping but easily arousable. Verbally agrees to not attempt to leave the emergency room. Restraints will be removed patient will continue to be monitored. 05/22/20 00:38 05/22/20 00:39
[2020-05-22] MEDS: BENZTROPINE MESYLATE INJ 2 MG/2 ML AMPULE IM SCH ×2 (09:30→09:33)
[2020-05-22] MEDS: OLANZAPINE INJ/PF 10 MG SDV IM SCH ×2 (09:33→17:49)
--- NOTE | 2020-05-22 12:57 | PSYCHOLOGICAL NOTE ---
Psych Note - Psych Note Date seen by psych provider: 05/22/20 Time seen by psych provider: 12:40 Psych Note: [id number] Patient presents defensive, agitated, and guarded. Throughout evaluation he would roll his eyes and interrupt clinician when speaking. He continues to present paranoid and defensive and is not satisfied by any explanations provided to him. He made minimal eye contact with clinician and proceeded to eat and watch tv for most of the check in. Upon entering his room, he states, You have already done enough to me. He states he has nothing to say to the clinician at this time. He reports he is fine. He states his mother was coerced by his ex-girlfriend as well (Patient called mother at 0905 this morning). The IVC process was re-explained to the patient as well as the team deciding to place him on IVC. He states he is going to get to the bottom up of it and has people making phone calls. Patient expresses worries about losing his job and states he has animals who have not eaten in 3 days. Assistance was offered to patient to make phone calls to friend or family to assist with caring for his pets and informing his work. Patient was informed he was able to make 2 phone calls and have visitors and clinician would assist with coordination if needed. Patient denied assistance from clinician and continued to state clinician has done enough and clinician made this happen. It was explained, again, to patient the criteria he is meeting for IVC and how his behaviors do not make the team feel safe sending him home at this time. He then stated he was not going to [facility] and inquired when he was going to [facility]. Clinician informed patient that his COVID test results were pending and when the results return, his packet would be faxed to [facility]. It was explained to him that being [facility] insurance, that is the first option for placement and we typically look elsewhere if they are at full capacity. Patient stated [facility] is full and he is not going there. Patient was informed that as of yesterday [facility] had bed availability and he would be informed when his packet for placement was being sent out to facilities. 1123 and 1253: Phone calls were made to mother, Nataly, at [phone] and her cell [phone] at 1123 and 1253. There was no answer at any attempt. Patient spoke to mother at 0905 this morning. Will try again later to get an update on collateral. [id number] Checked back in with patient. Patient was much more cooperative and pleasant. He apologized for his behavior yesterday and expressed concern about his pets and having nobody to feed them. Patient reports he feels as if the medication is effective and he feels more calm. He mentions feeling pretty anxious at this time and worrying about his job and his pets. Patient continues to present paranoid as he states he is unable to get into his cell phone and access phone numbers due to his ex changing his password. He continues to report he did not send her suicidal text messages and he is not suicidal. He reports he loves his kids and wants to live for his kids and would not kill himself and has never been suicidal. When asked about his mother's concerns and wanting him to come stay with her, he reports mother was worried about him being alone after the break up and wanted him to come to [place] and be with her. He reports being here is going to make everything worse as he already took vacation this year and needs to work to pay his bills. He reports he is interested in outpatient therapy and states he would like to continue medication management as he feels he is less on edge and less irritable since starting medications. Patient's mood at this time was content, worried, and slightly paranoid. His affect was congruent. He presented appropriately. He demonstrated future forward goal oriented thinking as he talked about taking care of his cats, going to work, seeing his kids, and his mother visiting for [place].
--- NOTE | 2020-05-22 15:13 | ER Document Report ---
Doctor's Note Notes: 05/22/20 15:13 Patient sleeping at this time. Patient still pending rapid Covid test. Patient with behavioral health team states that the [facility] does have a bed that is available that he could go to once they have a negative Covid test. logging crew supervisor, Krissy, notified of situation. 05/22/20 17:16 PHYSICAL EXAMINATION: GENERAL: Well-appearing and in no acute distress. HEAD: Atraumatic, normocephalic. EYES: sclera anicteric, conjunctiva are normal. ENT: nares patent. Moist mucous membranes. NECK: Normal range of motion, supple LUNGS: CTAB and equal. No wheezes rales or rhonchi. HEART: Regular rate and rhythm without murmurs ABDOMEN: Soft, nontender, normal bowel sounds, no guarding. EXTREMITIES: Normal range of motion, no pitting edema. BACK: No CVA tenderness NEUROLOGICAL: Cranial nerves grossly intact. Normal speech. PSYCH: Normal mood, normal affect. SKIN: Warm, Dry, normal turgor Patient denies any complaints at present. Patient medically clear for discharge or transfer pending behavioral health team disposition at this time.
[2020-05-22] MEDS ORDERED: CHLORPROMAZINE HCL 25 MG TABLET PO ONE (22:43)
[2020-05-23] MEDS ORDERED: CHLORPROMAZINE HCL 50 MG TABLET PO ONE (09:37)
[2020-05-23] MEDS ORDERED: OLANZAPINE 5 MG TABLET PO ONE (09:37)
[2020-05-23] MEDS ORDERED: BENZTROPINE MESYLATE 1 MG TABLET PO ONE (09:37)
--- NOTE | 2020-05-23 09:51 | ER Document Report ---
Doctor's Note Notes: 05/23/20 09:38 S: Patient turned over to me by the nighttime provider team. Patient was pending Covid screen so that he could have inpatient psychiatric treatment at the [facility]. It has come back negative. Around on the patient. He is mildly distressed this morning. He states he is really worried about his pads as well as his job. He states he would like to be discharged home. However the patient is on an IVC. I discussed that the plan that I knew of was to go to the [facility] but that I would talk further with the behavioral health team about him. He states that he is not suicidal and never had suicidal ideation. However, apparently he had sent messages to his girlfriend with guns saying he was going to shoot himself. While he does state that he is not suicidal he does say multiple times that he will wants to go home so he does not lose his job and he can take care of his pets with what "little time he has left". O: Constitutional: Alert, oriented, appears anxious. Neck: Supple, no lymphadenopathy Cardio: Regular rate and rhythm, no murmurs rubs or gallops Pulmonology: Clear to auscultation throughout Psych: Anxious. States that he does not have any current SI or plan. States that he thinks suicide is selfish. States he would like to go home and have his job and take care of his pets with "what little time he has left" A/P: Patient here in the emergency department on IVC orders for suicidal ideation and sending text messages to his ex-girlfriend showing him with a gun. He is a . He does have firearms in the home. He is telling me today that he is not suicidal and would like to be discharged home. Will follow with the behavioral health team about the patient's treatment plan. MARK Meyers did approach me about his medications this morning. We will give him p.o. Zyprexa and Cogentin. I have advised patient of his medications to come to him he agrees with the plan. Initially we had Thorazine p.o. ordered as well but it appears that really its for as needed use only. We will hold that. 05/23/20 10:46 Spoke with [facility] about the patient. Patient has been accepted at [facility] and remains on IVC orders because concern for his safety. We will fill out EMTALA form and plan for transportation with in approximately an hour. 05/23/20 11:48 Enforcement here for patient for transfer to [facility] for inpatient psychiatric services. Patient is stable for transfer.
[2020-05-23] MEDS: BENZTROPINE MESYLATE INJ 2 MG/2 ML AMPULE IM SCH (09:52)
[2020-05-23] MEDS: OLANZAPINE INJ/PF 10 MG SDV IM SCH (09:52)
[2020-05-23] MEDS ORDERED: NICOTINE 14 MG/24 HR PATCH.TD24 TD ONE (12:03)
[2020-05-23 12:13] VITALS: BP 121/71
--- NOTE | 2020-05-23 17:48 | PSYCHOLOGICAL NOTE ---
Psych Note - Psych Note Date seen by psych provider: 05/23/20 Time seen by psych provider: 10:45 Psych Note: Reason for Consult: Suicidal ideation Check in conducted with patient: Patient reports his girlfriend was making porn video in his house and he has all the proof in his truck. He denies he sent any photos of guns and reports it was his ex-girlfriend that sent it through his facebook (patient did have a shotgun in his truck per law enforcement). Patient continued to ask questions repeatedly and asks to call his paramedical aide. Patient does admit to doing "a line" of methamphetamine Th night; "Well, I thought it was cocaine...I was just having a good time, partying, but ya I did m..m..but I thought it was cocaine, I don't want to get ugly." Impression/plan: Patient is recommended for continued IVC. He was admitted to the [facility] after sending suicidal text messages and photos of a gun to his ex- girlfriend. Patient has a history of PTSD that has been untreated as well as po ssible neurological concerns related to his TBI. He has probable substance abuse occurring due to UDS being positive for amphetamines/ methamphetamines, however patient reports only using cocaine 2-3 days prior, which both can cause an increase in paranoia and impulsively issues. Patient has been making bizarre accusations of his girlfriend of ten years being a porn star and cheating on him and has likely been off of his psychiatric medications for some time, as evidenced by mother's report during collateral call. Patient continued to demonstrate paranoia today and an inability to engage in problem-solving. Patient has been accepted to [facility]; transport has been requested. Dr. Mendoza was consulted on the care and management of this patient; attending physician is in agreement with recommendations and disposition. Case management: 09 Called [facility] to confirm acceptance (nursing note at 0904 reports acceptance); they confirmed and provided accepting doctor. They request a hard copy of negative COVID test results in packet with patient. [phone] Faxed transport request 1000 Provided attending nurse transport information and packet
== END 2020-05-23 12:11 ==
LOC: ER 21:42
DX: T14.91XA Suicide attempt, initial encounter (principal); X83.8XXA Intentional self-harm by other specified means, initial encounter; F17.200 Nicotine dependence, unspecified, uncomplicated; Z87.820 Personal history of traumatic brain injury; Z20.828 Contact with and (suspected) exposure to other viral communicable diseases
CPT/HCPCS: 93005; 99285; 96372 ×2; 36415; 80307 ×4; 85025; 87635; 80053; 81001; 93010; J0515; J3230; J3490; C9803

== ENCOUNTER 2020-07-07 00:29 | Emergency (ER) | payer OTHER ==
[2020-07-07] MEDS ORDERED: OLANZAPINE INJ/PF 10 MG SDV IM ONE (02:30)
[2020-07-07 02:35] LABS: ABSOLUTE BASOPHILS # (AUTO) 0.1 10^3/uL (0.0-0.2); ABSOLUTE EOSINOPHILS # (AUTO) 0.1 10^3/uL (0.0-0.6); ABSOLUTE LYMPHOCYTES (AUTO) 2.2 10^3/uL (0.5-4.7); ABSOLUTE MONOCYTES (AUTO) 0.9 10^3/uL (0.1-1.4); ABSOLUTE NEUT (AUTO) 7.4 10^3/uL (1.7-8.2); BASOPHILS % (AUTO) 0.7 % (0-2); EOSINOPHILS % (AUTO) 1.1 % (0-6); HEMATOCRIT 42.9 % (37.9-51.0); HEMOGLOBIN 14.6 g/dL (13.5-17.0); LYMPHOCYTES % (AUTO) 20.3 % (13-45); MEAN CORPUSCULAR HGB CONC 34.1 g/dL (32.0-36.0); MEAN CORPUSCULAR VOLUME 88 fl (80-97); MONOCYTES % (AUTO) 8.3 % (3-13); PLATELET COUNT 338 10^3/uL (150-450); RED BLOOD COUNT 4.88 10^6/uL (4.35-5.55); RED CELL DISTRIBUTION WIDTH 13.4 % (11.5-14.0); SEGMENTED NEUTROPHILS % (AUTO) 69.6 % (42-78); TOTAL CELLS COUNTED % (AUTO) 100 %; WHITE BLOOD COUNT 10.6 10^3/uL (4.0-10.5)
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
[2020-07-07 02:47] LABS: ALBUMIN 4.1 g/dL (3.5-5.0); ALKALINE PHOSPHATASE 99 U/L (38-126); ANION GAP 9 (5-19); ASPARTATE AMINO TRANSFERASE 25 U/L (17-59); BILIRUBIN,DIRECT 0.2 mg/dL (0.0-0.4); BILIRUBIN,TOTAL 0.3 mg/dL (0.2-1.3); BLOOD UREA NITROGEN 18 mg/dL (7-20); CALCIUM 9.1 mg/dL (8.4-10.2); CARBON DIOXIDE 25 mmol/L (22-30); CHLORIDE 106 mmol/L (98-107); GLUCOSE 109 mg/dL (75-110); POTASSIUM 4.2 mmol/L (3.6-5.0); TOTAL PROTEIN 6.5 g/dL (6.3-8.2)
[2020-07-07 02:48] LABS: ACETAMINOPHEN < 10 ug/mL (10-30); ALCOHOL < 10 mg/dL (NONE DETECTED); SALICYLATE < 1.0 mg/dL (2.0-20.0)
--- NOTE | 2020-07-07 12:18 | ER Document Report ---
Doctor's Note Notes: 07/07/20 12:18 I reviewed the patient's lab work and history. Has still not provided urine for testing
--- NOTE | 2020-07-07 12:47 | PSYCHOLOGICAL NOTE ---
Psych Note - Psych Note Date seen by psych provider: 07/07/20 Time seen by psych provider: 11:23 Psych Note: Collateral Information: At 1123 spoke to Nurse Ramonita from the [facility]. She identified patient's follow up from his last [facility] hospitalization was: follow up with mental health at [facility] and Substance Abuse services. She noted patient had the substance abuse consult 05/30/2020 where he said he didn't want any substance abuse services even though he admitted there were issues, he had been positive for amphetamine but is not prescribed any such medication, and then on 06/07/2020 he no showed for medication management appointment with psychiatrist Dr. Caldwell. She further stated as a result of that no show for medication management there is no follow up appointment. She identified "a lot of people/professionals have been trying to reach patient, especially the Suicide Prevention team (phone calls made 07/07/2020, 06/28/2020, 06/22/2020, 06/14/2020, 06/09/2020) then they sent a letter saying they have been trying to reach patient. He has not answered phone calls, returned calls, or made any contact. She reported diagnoses of Psychosis, Post Traumatic Stress Disorder, and Traumatic Brain Injury (she noted it does not show this is combat related). Prescribed medications are: Trazodone 200MG at night, Depakote 250MG at night, Seroquel 50MG at night, Hydroxyzine 50MG at night as needed for insomnia, and Ativan 1MG daily for anxiety/panic attacks. She reported medications were last filled 05/27/2020, all were 30 day supplies except Trazodone which was a 90 day supply, it takes up to 3 days for mail delivery so if he got it by 05/31/2020 he would still be out of the 30 day supply ones.
[2020-07-07 13:09] VITALS: BP 149/86
[2020-07-07] MEDS ORDERED: HYDROXYZINE PAMOATE 25 MG CAPSULE PO ONE (14:28)
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
--- NOTE | 2020-07-07 23:36 | EKG REPORT ---
SEVERITY:- OTHERWISE NORMAL ECG - SINUS RHYTHM : Confirmed by: Julius Jenkins 07-Jul-2020 23:35:18
== END 2020-07-07 15:00 | disposition home or self-care (01) ==
LOC: ER 00:29
DX: F22 Delusional disorders (principal); F41.9 Anxiety disorder, unspecified; F17.210 Nicotine dependence, cigarettes, uncomplicated; Z87.820 Personal history of traumatic brain injury; Z78.1 Physical restraint status
CPT/HCPCS: 36415; 80053; 80307; 85025; 93005; 93010; 96372; 99285